=== PATIENT | male | born 1980 | race Caucasian/White ===

== ENCOUNTER 2017-04-21 19:43 | Emergency (ER) | payer SELFPAY ==
[~2017-04-21] VITALS: Ht 180.3 cm; Wt 100.0 kg
[2017-04-21 19:52] VITALS: BP 139/85; PULSE 80; RESP 20; TEMP 97.8; O2SAT 96
== END 2017-04-21 20:18 | disposition left against medical advice (07) ==
LOC: NED 19:43
DX: Z00.8 Encounter for other general examination (principal); Z53.21 Procedure and treatment not carried out due to patient leaving prior to being seen by health care provider
CPT/HCPCS: 99281

== ENCOUNTER 2017-05-10 23:26 | Emergency (ER) | payer SELFPAY ==
[~2017-05-10] VITALS: Ht 180.3 cm; Wt 100.0 kg
[2017-05-10 23:27] VITALS: BP 163/94; PULSE 98; RESP 16; TEMP 98.3; O2SAT 97
[2017-05-11 00:21] VITALS: RESP 16; O2SAT 99
[2017-05-11] MEDS ORDERED: SODIUM CHLORIDE 0.9% FLUSH 10 ML FLUSH IVF PRN (00:30)
--- NOTE | 2017-05-11 00:43 | RADRPT ---
EXAM DATE/TIME: 05/11/2017 00:27 [place] COMPARISON: No previous studies available for comparison. INDICATIONS : Sudden onset chest pain MEDICAL HISTORY : Hypertension. Hiatal hernia. SURGICAL HISTORY : Hernia repair ENCOUNTER: Initial ACUITY: 1 day PAIN SCORE: 8/10 LOCATION: Bilateral chest FINDINGS: Single AP view of the chest. The lungs are clear. Cardiomediastinal silhouette within normal limits. No evidence of pleural effusion or pneumothorax. CONCLUSION: No acute cardiopulmonary disease identified. Avi Platt MD on May 11, 2017 at 0:36 Board Certified Radiologist. This report was verified electronically.
[2017-05-11 00:46] LABS: AUTOMATED NEUTROPHIL # 6.5 TH/MM3 (1.8-7.7); BASOPHIL # 0.2 TH/MM3 (0-0.2); EOSINOPHIL # 0.3 TH/MM3 (0-0.4); EOSINOPHIL % 2.7 % (0.0-4.0); HEMATOCRIT 45.5 % (39.0-51.0); HEMOGLOBIN 15.7 GM/DL (13.0-17.0); LYMPH % 21.2 % (9.0-44.0); LYMPHOCYTE # 2.1 TH/MM3 (1.0-4.8); MEAN CELL VOLUME 88.4 FL (80.0-100.0); MEAN CORPUSCULAR HEMOGLOBIN 30.6 PG (27.0-34.0); MEAN CORPUSCULAR HGB CONC 34.6 % (32.0-36.0); MEAN PLATELET VOLUME 8.9 FL (7.0-11.0); MONO % 9.2 % (0.0-8.0); MONOCYTE # 0.9 TH/MM3 (0-0.9); NEUT % 64.9 % (16.0-70.0); PLATELET COUNT 275 TH/MM3 (150-450); RED BLOOD COUNT 5.15 MIL/MM3 (4.50-5.90); RED CELL DISTRIBUTION WIDTH 13.3 % (11.6-17.2)
[2017-05-11 00:57] LABS: INTERNATIONAL NORMALIZED RATIO 1.1 RATIO
[2017-05-11 01:02] LABS: ALBUMIN 4.4 GM/DL (3.4-5.0); ALKALINE PHOSPHATASE 85 U/L (45-117); ALT (GPT) 22 U/L (12-78); AST (GOT) 19 U/L (15-37); BICARBONATE 30.9 MEQ/L (21.0-32.0); BLOOD UREA NITROGEN 13 MG/DL (7-18); CALCIUM 9.1 MG/DL (8.5-10.1); CHLORIDE 103 MEQ/L (98-107); CREATININE 0.91 MG/DL (0.60-1.30); GLOMERULAR FILTRATION RATE 93 ML/MIN (>89); GLUCOSE,RANDOM 93 MG/DL (74-106); MAGNESIUM 2.2 MG/DL (1.5-2.5); SODIUM (NA) 139 MEQ/L (136-145); TOTAL BILIRUBIN ADULT 0.5 MG/DL (0.2-1.0); TROPONIN I LESS THAN 0.02 NG/ML (0.02-0.05)
[2017-05-11 01:06] LABS: ACETAMINOPHEN LESS THAN 2.0 MCG/ML (10.0-30.0)
[2017-05-11] MEDS ORDERED: ASPIRIN 81 MG CHEW TAB CHEW ONE (01:15)
--- NOTE | 2017-05-11 01:33 | PD ---
HPI Chief Complaint: Chest Pain Time Seen by Provider: 00:19 Travel History International Travel<30 days: No Contact w/Intl Traveler<30days: No Traveled to known affect area: No History of Present Illness HPI 36 year-old male presents to the emergency department stating that he is tired of using methamphetamine. Patient states that he also wants to stop drinking alcohol. Patient states that he's been using methamphetamine for approximately a year. Patient states his friend told him that he needed to get straight. Patient states that he has ocular so had intermittent chest tightness over the past year with use of methamphetamine. Patient denies any chest pain at this time. Patient states that earlier in the afternoon he injected methamphetamine he felt the same chest tightness that he saw before but it resolved and he has not had subsequently. Patient states that he has had issues with polysubstance abuse in the past ongoing tobacco use and alcohol use. Patient states that he has no desire to kill himself or hurt anyone else. Patient states that he knows that if he does not get help that he could injure himself with his ongoing methamphetamine PFSH Past Medical History Narrative Medical anxiety depression hypertension substance abuse; nursing notes reviewed Diminished Hearing: No Hiatal Hernia: Yes Hypertension: Yes Immunizations Current: No Past Surgical History Abdominal Surgery: Yes (HERNIA REPAIR) Other Surgery: Yes (RIGHT ARM) Social History Alcohol Use: Yes (OCCASSIONALLY) Tobacco Use: Yes (1-2 PPD) Substance Use: Yes (HX HEROIN, METH, OPIOIDS) Allergies-Medications (Allergen,Severity, Reaction): Coded Allergies: No Known Allergies (Unverified , 05/11/17) Reported Meds & Prescriptions Reported Meds & Active Scripts Active Naproxen 500 Mg Tab 500 Mg PO BID Review of Systems Except as stated in HPI: all other systems reviewed are Neg Physical Exam Narrative GENERAL: Well-developed well-nourished male in no acute distress no respiratory distress SKIN: Warm and dry. HEAD: Normocephalic. EYES: No scleral icterus. No injection or drainage. NECK: Supple, trachea midline. No JVD or lymphadenopathy. CARDIOVASCULAR: Regular rate and rhythm without murmurs, gallops, or rubs. RESPIRATORY: Breath sounds equal bilaterally. No accessory muscle use. GASTROINTESTINAL: Abdomen soft, non-tender, nondistended. MUSCULOSKELETAL: No cyanosis, or edema. BACK: Nontender without obvious deformity. No CVA tenderness. Data Data Last Documented VS Orders Orders Electrocardiogram (05/11/17:19) Ckmb (Isoenzyme) Profile (05/11/17:19) Complete Blood Count With Diff (05/11/17:19) Comprehensive Metabolic Panel (05/11/17:19) Magnesium (Mg) (05/11/17:19) Prothrombin Time / Inr (Pt) (05/11/17:) Act Partial Throm Time (Ptt) (05/11/17:19) Troponin I (05/11/17:19) Chest, Single Ap (05/11/17:19) Ecg Monitoring (05/11/17:19) Bilateral Bp Monitoring (05/11/17:) Iv Access Insert/Monitor (05/11/17:) Oximetry (05/11/17:19) Oxygen Administration (05/11/17:) Sodium Chloride 0.9% Flush (Ns Flush) (05/11/17 00:30) Drug Screen, Random Urine (05/11/17:19) Alcohol (Ethanol) (05/11/17 00:19) Tylenol (Acetaminophen) (05/11/17:19) Salicylates (Aspirin) (05/11/17:19) CKMB (05/11/17 00:22) CKMB% (05/11/17 00:22) Aspirin Chew (Aspirin Chew) (05/11/17 01:15) Ed Discharge Order (05/11/17 01:29) Labs Laboratory Tests Test 05/11/17 00:22 White Blood Count 10.0 TH/MM3 Red Blood Count 5.15 MIL/MM3 Hemoglobin 15.7 GM/DL Hematocrit 45.5 % Mean Corpuscular Volume 88.4 FL Mean Corpuscular Hemoglobin 30.6 PG Mean Corpuscular Hemoglobin Concent 34.6 % Red Cell Distribution Width 13.3 % Platelet Count 275 TH/MM3 Mean Platelet Volume 8.9 FL Neutrophils (%) (Auto) 64.9 % Lymphocytes (%) (Auto) 21.2 % Monocytes (%) (Auto) 9.2 % Eosinophils (%) (Auto) 2.7 % Basophils (%) (Auto) 2.0 % Neutrophils # (Auto) 6.5 TH/MM3 Lymphocytes # (Auto) 2.1 TH/MM3 Monocytes # (Auto) 0.9 TH/MM3 Eosinophils # (Auto) 0.3 TH/MM3 Basophils # (Auto) 0.2 TH/MM3 CBC Comment DIFF FINAL Differential Comment Prothrombin Time 11.0 SEC Prothromb Time International Ratio 1.1 RATIO Activated Partial Thromboplast Time 27.3 SEC Blood Urea Nitrogen 13 MG/DL Creatinine 0.91 MG/DL Random Glucose 93 MG/DL Total Protein 8.0 GM/DL Albumin 4.4 GM/DL Calcium Level 9.1 MG/DL Magnesium Level 2.2 MG/DL Alkaline Phosphatase 85 U/L Aspartate Amino Transf (AST/SGOT) 19 U/L Alanine Aminotransferase (ALT/SGPT) 22 U/L Total Bilirubin 0.5 MG/DL Sodium Level 139 MEQ/L Potassium Level 4.2 MEQ/L Chloride Level 103 MEQ/L Carbon Dioxide Level 30.9 MEQ/L Anion Gap 5 MEQ/L Estimat Glomerular Filtration Rate 93 ML/MIN Total Creatine Kinase 240 U/L Creatine Kinase MB 4.3 NG/ML Troponin I LESS THAN 0.02 NG/ML Salicylates Level 2.8 MG/DL Urine Opiates Screen NEG Acetaminophen Level LESS THAN 2.0 MCG/ML Urine Barbiturates Screen NEG Urine Amphetamines Screen POS Urine Benzodiazepines Screen NEG Urine Cocaine Screen NEG Urine Cannabinoids Screen NEG Ethyl Alcohol Level LESS THAN 3 MG/DL MDM Medical Decision Making Medical Screen Exam Complete: Yes Emergency Medical Condition: Yes Medical Record Reviewed: Yes Interpretation(s) EKG: Sinus tachycardia rate 103 st elevation injury pattern or ectopy noted Last Impressions Chest X-Ray 05/11/17 0019 Signed Impressions: Service Date/Time: Thursday, May 11, 2017 00:27 - CONCLUSION: No acute cardiopulmonary disease identified. Avi Platt MD CBC & BMP Diagram 05/11/17 00:22 Total Protein 8.0, Albumin 4.4, Calcium Level 9.1, Magnesium Level 2.2, Alkaline Phosphatase 85, Aspartate Amino Transf (AST/SGOT) 19, Alanine Aminotransferase (ALT/SGPT) 22, Total Bilirubin 0.5 Vital Signs Date Time Temp Pulse Resp B/P (MAP) Pulse Ox O2 Delivery O2 Flow Rate FiO2 05/11/17 00:21 99 Room Air 05/11/17 00:21 16 99 Room Air 1/5/18 23:27 98.3 98 16 163/94 (117) 97 Room Air Urine collection: Positive for amphetamine Troponin I: Less than 0.02, not elevated CK total: 240, not elevated; CK-MB 4.0, elevated MB percent however 1.8% not elevated Salicylate level and acetaminophen levels were not elevated Serum alcohol 3, not elevated Differential Diagnosis Amphetamine abuse, substance abuse, alcohol misuse Narrative Course Specimens collected and sent for resulting patient waiting for lab results; patient here voluntarily to be assessed medical clearance for he can pursue a detox program; patient has no plan to harm himself or others. Diagnosis Primary Impression: Amphetamine user Referrals: [facility] for appointment Patient Instructions: General Instructions Additional Instructions: Follow-up with [facility] regarding resources for detox programs Return to the emergency department as needed Med/Other Pt SpecificInfo: No Meds Exist/No RX given Disposition: 01 DISCHARGE HOME Condition: Stable Rebeca Moura MD May 11, 2017 01:33
[2017-05-11 01:56] VITALS: BP 141/78; PULSE 88; RESP 18; O2SAT 99
--- NOTE | 2017-05-11 12:54 | EKG ---
Date Performed: 05/10/2017 Time Performed: 23:55:32 PTAGE: 36 years EKG: SINUS TACHYCARDIA ABNORMAL RHYTHM ECG NO PREVIOUS TRACING DOCTOR: Ar Villarreal Interpretating Date/Time 05/11/2017 12:53:15
[2017-05-12] MEDS ORDERED: NAPR500T2 PO (00:24)
== END 2017-05-11 01:58 | disposition home or self-care (01) ==
LOC: NEPC 23:26
DX: F15.90 Other stimulant use, unspecified, uncomplicated (principal); R00.0 Tachycardia, unspecified; R07.9 Chest pain, unspecified; F17.200 Nicotine dependence, unspecified, uncomplicated
CPT/HCPCS: 71045; 80053; 80307; 82550; 82552; 83735; 84484; 85025; 85610; 85730; 93005

== ENCOUNTER 2017-05-11 22:58 | Emergency (ER) | payer SELFPAY ==
[~2017-05-11] VITALS: Ht 175.3 cm; Wt 95.0 kg
[2017-05-11 23:00] VITALS: BP 162/78; PULSE 96; RESP 16; TEMP 97.9; O2SAT 98
[2017-05-11] MEDS ORDERED: ACETAMINOPHEN/HYDROcodone 325 MG/5 MG TAB PO ONE (23:30)
[2017-05-11] MEDS ORDERED: TETANUS/DIPHTHERIA TOXOID ADULT 0.5 ML VIAL IM ONE (23:30)
[2017-05-11] MEDS ORDERED: NAPROXEN 500 MG TAB PO ONE (23:30)
[2017-05-11] MEDS ORDERED: LIDOCAINE HCL 1% 50 ML VIAL INFIL ONE (23:45)
[2017-05-11] MEDS ORDERED: LIDOCAINE HCL 2% 20 ML VIAL ONE (23:48)
[2017-05-12] MEDS ORDERED: NAPR500T2 PO (00:24)
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
== END 2017-05-12 00:55 | disposition home or self-care (01) ==
LOC: NEPD 22:58
DX: S01.511A Laceration without foreign body of lip, initial encounter (principal); F17.200 Nicotine dependence, unspecified, uncomplicated; F19.10 Other psychoactive substance abuse, uncomplicated; Z23 Encounter for immunization; Y04.2XXS Assault by strike against or bumped into by another person, sequela
CPT/HCPCS: 12011; 90471; 90714